=== PATIENT | male | born 1995 | race Caucasian/White ===

== ENCOUNTER 2021-02-23 20:55 | Emergency (ER) | payer MEDICAID ==
[~2021-02-23] VITALS: Ht 180.3 cm; Wt 104.3 kg
[2021-02-23 21:10] VITALS: BP_SYST 128
[2021-02-23 21:50] VITALS: BP_SYST 123
== END 2021-02-23 21:50 | disposition home or self-care (01) ==
LOC: SED 20:55
DX: R20.0 Anesthesia of skin (principal)
CPT/HCPCS: 99281